=== PATIENT | male | born 1950 | race Caucasian/White ===

== ENCOUNTER 2025-04-09 09:39 | Emergency (ER) | payer MEDICARE, SELFPAY ==
[2025-04-09 09:42] VITALS: BP 139/76
--- NOTE | 2025-04-09 09:55 | ED.GENMED ---
History of Present Illness
General
Chief Complaint: Generalized Pain
Source: patient
Exam Limitations: none
Time Seen by Provider: 04/09/25 09:45
History of Present Illness
History of Present Illness:
74-year-old presents with severe pain left chest wall where he was diagnosed with shingles several days ago. He has been on Valtrex 3 times a day as well as gabapentin 100 mg 3 times a day dose of his 's oxycodone without any significant
relief. Vcvo-sqk-sbfioqk NSAIDs helping. He states the pain is severe and is not sleeping because of the pain. No fevers. He is a tae-mknxjfc-hngwfbipo diabetic. No other complaints at this time.
Phy Exam
Physical Exam
Physical Exam:
General: Uncomfortable appearing male no acute distress
HEENT normocephalic atraumatic
Skin: Vesicular rash left chest wall without underlying fluctuance or induration
Extremities: No cyanosis
Course
Orders/Labs/Results
Orders:
Orders
04/09/25 09:55
HYDROmorphone [Dilaudid] 0.5 mg IV NOW STA
Ketorolac [Toradol] 15 mg IV NOW STA
Vital Signs
Initial and Last Documented VS:
Initial Vital Signs
Temp Pulse Resp BP Pulse Ox
98.0 F 77 16 139/76 98
04/09/25 09:42 04/09/25 09:42 04/09/25 09:42 04/09/25 09:42 04/09/25 09:42
Last Documented Vital Signs
Temp Pulse Resp BP Pulse Ox
98.0 F 77 16 125/73 99
04/09/25 09:42 04/09/25 09:42 04/09/25 09:42 04/09/25 10:18 04/09/25 10:18
MDM/Problems Addressed
Differential Diagnosis Includes:
Patient in significant pain from herpes zoster rash on left chest wall. Initially he was getting dizzy from his dose of gabapentin however he seems to be tolerating at this time. I will advise he increase this at home for his nerve pain. But
given the severe disc will order Toradol and Dilaudid here consider adding prednisone to the mix for other anti-inflammatory properties
*Pulse Oximetry
SaO2: 98
Oxygen Mode of Delivery: Room air
Patient hypoxic: no
*Critical Care Note
Total Time (30-74mins, 75-104mins- exclusive of procedures): Not Applicable
Update Note
Update Note:
Patient feeling much better after medication here. Will prescribe prednisone for the patient to take at home and a short supply of pain medicine. He will increase his gabapentin. Stable for discharge
ED Attending Note
-
Portions of this chart may have been created with voice recognition software.� Occasional wrong word or��sound alike� substitutions may have occurred due to the inherent limitations of voice recognition software.
Discharge Plan
Departure
Patient Disposition: Home (Routine Discharge)
Date of Disposition: 04/09/25
Time of Disposition: 11:37
Patient with high blood pressure during this ER visit?: No
Discharge Problem:
Herpes zoster
Instructions: Shingles
Prescriptions:
New
oxycodone-acetaminophen [Percocet] 5-325 mg tablet
1 tab PO TID PRN (Reason: Pain) Qty: 10 0RF
prednisone 20 mg tablet
40 mg PO DAILY 5 Days Qty: 10 0RF
Referrals:
Kira Haddad DO [Family Provider, Family Practice]
Activity Restrictions/Additional Instructions:
Increase gabapentin as discussed to 200 mg 3 times a day. Use prednisone as directed. Take prescribed pain medicine as needed for severe pain.
Interventions
Interventions:
*Risk Screen - Suicide Last Done: 04/09/25 09:42
*General Assessment Last Done: 04/09/25 10:42
*Neglect/Abuse Screening Last Done: 04/09/25 09:42
*ED- Fall Risk Assessment Last Done: 04/09/25 10:42
*ED COVID-19 Vaccine History Last Done: 04/09/25 10:42
Discharge Date and Time
Print Language: [id number]
[2025-04-09 10:04] VITALS: BMI 22.6
[2025-04-09] MEDS: TORADOL 15 MG IV (10:09)
[2025-04-09] MEDS: DILAUDID 0.5 MG IV (10:10)
[2025-04-09 10:18] VITALS: BP 125/73
[2025-04-09 12:24] VITALS: BP 98/65
== END 2025-04-09 12:25 | disposition home or self-care (01) ==
LOC: EMR 09:39
PROVIDERS: EMERGENCY PHYSICIAN Emergency Medicine; FAMILY PHYSICIAN Family Medicine
DX: R07.89 Other chest pain (principal); B02.9 Zoster without complications; E11.9 Type 2 diabetes mellitus without complications
CPT/HCPCS: 99284; 96374; 96375